=== PATIENT | female | born 1955 | race Two or more races ===

== ENCOUNTER 2017-10-10 07:43 | Outpatient (CLI) | payer OTHER | END 2017-10-10 07:44 | disposition home or self-care (01) | LOC: SONOGRAMA 07:43 | DX: E04.1 Nontoxic single thyroid nodule (principal) ==

== ENCOUNTER 2020-11-04 | Outpatient (CLI) | payer OTHER | END 2020-11-04 07:22 | disposition home or self-care (01) | LOC: PPH VACUNA | PROVIDERS: ATTEND Emergency Medicine Pediatric Emergency Medicine | DX: Z23 Encounter for immunization (principal) ==

== ENCOUNTER → 2020-11-24 10:38 | Outpatient (CLI) | payer OTHER | END | disposition home or self-care (01) | LOC: PPH VACUNA 10:38 | PROVIDERS: ATTEND Emergency Medicine Pediatric Emergency Medicine | DX: Z23 Encounter for immunization (principal) ==